=== PATIENT | female | born 1995 | race Caucasian/White ===

== ENCOUNTER 2017-02-13 22:13 | Emergency (ER) | payer OTHER ==
[2017-02-13 22:19] VITALS: BP 127/86; PULSE 76; TEMP 98.2; BMI 25.8
[2017-02-13] MEDS ORDERED: FLUCONAZOLE 50 MG TABLET PO ONE (23:58)
--- NOTE | 2017-02-14 00:03 | PDOC ---
History of Present Illness - General Chief Complaint: Vaginal Sxs Stated Complaint: VAGINAL ITCHING Time Seen by Provider: 02/13/17 23:39 History Source: Patient Exam Limitations: No Limitations - History of Present Illness Initial Comments: 02/13/17 23:58 22 yo F with no pmhx herer with c/o vaginal itching x 2 - 3 days. no abd pain. does have thick white dc. was started on amoxicillin few days ago. no other complaints. not . no concerns for std. no new sexual encounters. Past History - Past Medical History Allergies/Adverse Reactions: Allergies Allergy/AdvReac Type Severity Reaction Status Date / Time No Known Allergies Allergy Verified 02/13/17 22:19 Home Medications: Ambulatory Orders Fluconazole [Diflucan -] 150 mg PO ONCE #1 tablet 02/14/17 Other medical history: denies - Psycho/Social/Smoking Cessation Hx Anxiety: No Suicidal Ideation: No Smoking Status: No Smoking History: Never smoked Number of Cigarettes Smoked Daily: 0 Hx Alcohol Use: Yes (SOCIAL) Drug/Substance Use Hx: No Substance Use Type: Marijuana Review of Systems - Review of Systems Constitutional: No: Chills, Diaphoresis, Fever HEENTM: No: Blurred Vision Respiratory: No: Cough, Orthopnea Cardiac (ROS): No: Chest Pain ABD/GI: No: See HPI, Abdominal Distended, Nausea, Vomiting : Yes: Burning, Other (vaginal itching, vaginal white dc.). No: Dysuria, Discharge Musculoskeletal: No: Back Pain All Other Systems: Reviewed and Negative *Physical Exam - Vital Signs Last Vital Signs Temp Pulse Resp BP Pulse Ox 98.2 F 76 18 127/86 99 02/13/17 22:16 02/13/17 22:16 02/13/17 22:16 02/13/17 22:16 02/13/17 22:16 - Physical Exam General Appearance: Yes: Appropriately Dressed Neck: positive: Trachea midline Respiratory/Chest: positive: Lungs Clear, Normal Breath Sounds Cardiovascular: positive: Regular Rhythm, Regular Rate, S1, S2 Female Pelvic Exam: positive: normal external exam, cervical os closed, normal size ovaries, discharge (white adherant cottage cheese like dc) Gastrointestinal/Abdominal: positive: Normal Bowel Sounds, Flat, Soft. negative : Tender Musculoskeletal: positive: Normal Inspection. negative: CVA Tenderness Integumentary: positive: Normal Color, Dry, Warm Neurologic: positive: Fully Oriented, Alert, Normal Mood/Affect Medical Decision Making - Medical Decision Making 02/14/17 00:00 22 yo F with vaginal irritation, yeast like dc on exam. plan r/o , treat with diflucan and otc monistat. dc home. *DC/Admit/Observation/Transfer Diagnosis at time of Disposition: Vaginitis - Discharge Dispostion Disposition: HOME Condition at time of disposition: Improved Admit: No - Prescriptions Prescriptions: Fluconazole [Diflucan -] 150 mg PO ONCE #1 tablet - Patient Instructions Printed Discharge Instructions: Vaginal Yeast Infection Additional Instructions: take diflucan once in 2 days if still with persistant symptoms. you can use monistat 3 day suppositories nightly which you can buy over the counter. follow up with your medical assembler. call to schedule return for any problems or concerns.
[2017-02-14 00:04] LABS: URINE APPEARANCE CLEAR; URINE BILIRUBIN NEGATIVE (NEGATIVE); URINE BLOOD NEGATIVE (NEGATIVE); URINE COLOR LTYELLOW; URINE GLUCOSE (UA) NEGATIVE (NEGATIVE); URINE KETONE TRACE (NEGATIVE); URINE LEUK ESTERASE NEGATIVE (NEGATIVE); URINE NITRITE NEGATIVE (NEGATIVE); URINE PROTEIN NEGATIVE (NEGATIVE); URINE UROBILINOGEN NEGATIVE E.U./dl (0.2-1.0)
[2017-02-14] MEDS ORDERED: FLUCONAZOLE 100 MG TABLET (UD) ONE (00:13)
== END 2017-02-14 00:20 | disposition home or self-care (01) ==
LOC: JER 22:13
DX: B37.3 Candidiasis of vulva and vagina (principal)
CPT/HCPCS: 81003; 84703; 99281-25

== ENCOUNTER 2017-06-09 14:59 | Emergency (ER) | payer OTHER ==
[2017-06-09 15:03] VITALS: BMI 27.1
--- NOTE | 2017-06-09 16:25 | PDOC ---
History of Present Illness - General History Source: Patient - History of Present Illness Timing/Duration: reports: constant Abdominal Pain Onset Location: reports: suprapubic <Noris Gotti - Last Filed: 06/09/17 18:51> <Alexandria Alarcon - Last Filed: 06/09/17 20:21> - General Chief Complaint: Vaginal Bleeding Stated Complaint: BLEEDING (6 WKS ) Time Seen by Provider: 06/09/17 16:17 Past History - Past Medical History Other medical history: NONE - Reproductive History Is Patient Now?: Yes (#): 3 Para: 0 - Suicide/Smoking/Psychosocial Hx Smoking Status: No Smoking History: Never smoked Number of Cigarettes Smoked Daily: 0 Hx Alcohol Use: No Drug/Substance Use Hx: No Substance Use Type: Marijuana <Noris Gotti - Last Filed: 06/09/17 18:51> <Alexandria Alarcon - Last Filed: 06/09/17 20:21> - Past Medical History Allergies/Adverse Reactions: Allergies Allergy/AdvReac Type Severity Reaction Status Date / Time No Known Allergies Allergy Verified 06/09/17 15:03 Home Medications: Ambulatory Orders Ondansetron [Zofran *Odt*] 8 mg SL TID PRN 06/09/17 Review of Systems - Review of Systems Constitutional: No: Chills, Fever ABD/GI: No: Nausea, Vomiting : No: Dysuria, Flank Pain <Noris Gotti - Last Filed: 06/09/17 18:51> *Physical Exam - Vital Signs Last Vital Signs Temp Pulse Resp BP Pulse Ox 98.6 F 107 H 20 135/83 100 06/09/17 15:01 06/09/17 15:01 06/09/17 15:01 06/09/17 15:01 06/09/17 15:01 - Physical Exam General Appearance: Yes: Appropriately Dressed. No: Apparent Distress HEENT: positive: Normal Voice Neck: positive: Supple Respiratory/Chest: negative: Respiratory Distress Female Pelvic Exam: positive: normal external exam, cervical os closed, normal adnexa, vaginal bleeding, other (mod vag bleed, os closed). negative: CMT Gastrointestinal/Abdominal: positive: Soft. negative: Tender Musculoskeletal: negative: CVA Tenderness Integumentary: positive: Dry, Warm Neurologic: positive: Fully Oriented, Alert, Normal Mood/Affect <Noris Gotti - Last Filed: 06/09/17 18:51> - Vital Signs Last Vital Signs Temp Pulse Resp BP Pulse Ox 98.5 F 70 18 114/59 100 06/09/17 20:04 06/09/17 20:04 06/09/17 20:04 06/09/17 20:04 06/09/17 20:04 <Alexandria Alarcon - Last Filed: 06/09/17 20:21> ED Treatment Course - RADIOLOGY Radiology Studies Ordered: Category Date Time Status TRANSVAGINAL US PREG [US] Stat Ultrasound 06/09/17 16:22 Ordered <Noris Gotti - Last Filed: 06/09/17 18:51> - ADDITIONAL ORDERS Additional order review: Laboratory Results 06/09/17 06/09/17 06/09/17 16:39 16:39 16:39 Beta HCG, Quant 57862.9 Urine Color Colorless Urine Appearance Clear Urine pH 7.0 Urine Protein Negative Urine Glucose (UA) Negative Urine Ketones Negative Urine Blood 2+ H Urine Nitrite Negative Urine Bilirubin Negative Urine Urobilinogen Negative Urine RBC <1 Urine WBC <1 Blood Type O NEGATIVE Antibody Screen Negative - Medications Given in the ED: ED Medications Discontinued Medications Generic Name Dose Route Start Last Admin Trade Name Rosalind PRN Reason Stop Dose Admin Rho Immune Globulin 1,500 unit 06/09/17 18:29 06/09/17 20:03 Rhogam Plus IM 06/09/17 18:30 1,500 unit ONCE ONE Administration <Alexandria Alarcon - Last Filed: 06/09/17 20:21> Medical Decision Making - Medical Decision Making 06/09/17 16:23 22 yo F, (s/p 2 spon AB), ~ 6 weeks by dates, no US as of yet, p/w vaginal bleeding w/ cramps today. No dysuria, nausea, vomiting, fever or chills , scheduled for first care in the near future See exam 1st trimester bleed Mildly tachy but well cori, in NAD R/o ectopic vs spon AB vs vag bleed in nl preg -T&S -beta -UA -US 06/09/17 16:25 06/09/17 18:30 +IUP w/ FHR on US. Rhogam give for RH neg status. Pt stable for discharge w/ OB f/u next week 06/09/17 18:31 06/09/17 18:50 06/09/17 18:50 <Noris Gotti - Last Filed: 06/09/17 18:51> *DC/Admit/Observation/Transfer <Noris Gotti - Last Filed: 06/09/17 18:51> - Discharge Dispostion Admit: No <Alexandria Alarcon - Last Filed: 06/09/17 20:21> Diagnosis at time of Disposition: Threatened - Discharge Dispostion Disposition: HOME Condition at time of disposition: Good - Patient Instructions Printed Discharge Instructions: DI for Threatened Additional Instructions: The beta HCG was ~40,000K with an intrauterine with cardiac activity Please follow up with your OB next week You were given rhogam today as you are RH neg on your blood type. Rhogam is given to protect future pregnancies
[2017-06-09 16:47] LABS: URINE APPEARANCE CLEAR; URINE BILIRUBIN NEGATIVE (NEGATIVE); URINE BLOOD 2+ (NEGATIVE); URINE COLOR COLORLESS; URINE GLUCOSE (UA) NEGATIVE (NEGATIVE); URINE KETONE NEGATIVE (NEGATIVE); URINE NITRITE NEGATIVE (NEGATIVE); URINE PROTEIN NEGATIVE (NEGATIVE); URINE UROBILINOGEN NEGATIVE mg/dL (0.2-1.0)
[2017-06-09 16:49] LABS: URINE RBC <1 /hpf (0-3); URINE WBC <1 /hpf (3-5)
[2017-06-09] MEDS ORDERED: RHO(D) IMMUNE GLOBULIN 1,500 UNIT DISP.SYRIN IM ONE (18:29)
[2017-06-09 20:05] VITALS: BP 114/59; PULSE 70; TEMP 98.5
[2017-06-09 20:12] LABS: URINE LEUK ESTERASE Negative (NEGATIVE)
== END 2017-06-09 20:38 | disposition home or self-care (01) ==
LOC: JER 14:59
PROC: 3E0234Z Introduction of Serum, Toxoid and Vaccine into Muscle, Percutaneous Approach (ICD-10-PCS; principal; 2017-06-09)
DX: O20.0 Threatened abortion (principal); O36.0910 Maternal care for other rhesus isoimmunization, first trimester, not applicable or unspecified; Z3A.01 Less than 8 weeks gestation of pregnancy
CPT/HCPCS: 36415; 76801-TC; 81003; 81015; 84702; 86850; 86900; 86901; 86999; 99283-25; J1561

== ENCOUNTER 2017-06-16 05:13 | Day surgery (SDC) | payer OTHER ==
[2017-06-15 12:03] VITALS: BMI 26.4
--- NOTE | 2017-06-16 14:20 | HP ---
Admitting History and Physical - Admission Chief Complaint: Vaginal spotting History of Present Illness: 22 yo @ 7 weeks gestation, diagnosed with missed . She's pre op for suction D&C. History Source: Patient Limitations to Obtaining History: No Limitations - Past Medical History ...LMP: 04/23/17 ...: Yes ...: 2 ...Para: 0 - Past Surgical History Past Surgical History: Yes: None - Smoking History Smoking history: Never smoked Aproximately how many cigarettes per day: 0 - Alcohol/Substance Use Hx Alcohol Use: Yes ("NOT IN A WHILE") History of Substance Use: reports: None - Social History Usual Living Arrangement: Yes: Alone History of Recent Travel: No Home Medications - Allergies Allergies/Adverse Reactions: Allergies Allergy/AdvReac Type Severity Reaction Status Date / Time No Known Allergies Allergy Verified 06/16/17 14:06 - Home Medications Home Medications: Ambulatory Orders Vit Calc,Iron,Folic [ Vitamins] 1 each PO DAILY 06/15/17 Family Disease History - Family Disease History Family History: Unremarkable Review of Systems - Review of Systems Constitutional: reports: No Symptoms Eyes: reports: No Symptoms HENT: reports: No Symptoms Neck: reports: No Symptoms Cardiovascular: reports: No Symptoms Respiratory: reports: No Symptoms Gastrointestinal: reports: No Symptoms Genitourinary: reports: Vaginal Bleeding Breasts: reports: No Symptoms Reported Musculoskeletal: reports: No Symptoms Integumentary: reports: No Symptoms Neurological: reports: No Symptoms Endocrine: reports: No Symptoms Hematology/Lymphatic: reports: No Symptoms Psychiatric: reports: No Symptoms Pain Intensity: 3 Physical Examination Vital Signs: Vital Signs Temperature 98.6 F 06/16/17 14:06 Pulse Rate 79 06/16/17 14:06 Respiratory Rate 16 06/16/17 14:06 Blood Pressure 112/53 06/16/17 14:06 O2 Sat by Pulse Oximetry (%) 100 06/16/17 14:06 Constitutional: Yes: Well Nourished Eyes: Yes: Conjunctiva Clear HENT: Yes: Atraumatic Neck: Yes: Supple Cardiovascular: Yes: Regular Rate and Rhythm Respiratory: Yes: Regular Gastrointestinal: Yes: Normal Bowel Sounds ...Rectal Exam: Yes: WNL Neurological: Yes: Alert, Oriented ...Motor Strength: WNL Psychiatric: Yes: Alert, Oriented Problem List - Problems (1) Missed Code(s): O02.1 - MISSED Assessment/Plan Missed Pre op for suction D&C Consent signed Anesthesia to see patient
[2017-06-16] MEDS ORDERED: MIDAZOLAM HCL 2 MG/2 ML SINGLE DOSE VIAL ONE (14:33)
[2017-06-16] MEDS ORDERED: PROPOFOL 20 ML ONE ×3 (14:34)
[2017-06-16] MEDS ORDERED: LIDOCAINE HCL/PF 2% SDV 5ML VIAL ONE (14:38)
[2017-06-16] MEDS ORDERED: DEXAMETHASONE SOD PHOSPHATE 4 MG/1 ML VIAL ONE (14:38)
[2017-06-16] MEDS ORDERED: ONDANSETRON 4 MG/2 ML VIAL IVPUSH PRN (15:27)
[2017-06-16] MEDS ORDERED: oxyCODONE HCL 5 MG TABLET PO PRN ×2 (15:27)
[2017-06-16] MEDS ORDERED: LACTATED RINGERS SOLUTION 1,000 ML IV SCH (15:30)
--- NOTE | 2017-06-16 15:54 | OP ---
Operative Note - Note: Operative Date: 06/16/17 Pre-Operative Diagnosis: Missed Operation: Suction D&C Findings: Product of conception Post-Operative Diagnosis: Same as Pre-op Surgeon: Mary Velazquez Anesthesia: General Specimens Removed: Product of conception Estimated Blood Loss (mls): 10
[2017-06-16] MEDS ORDERED: ACETAMINOPHEN 1000 MG/100 ML VIAL (NON FORMULARY) IVPB ONE (15:55)
[2017-06-16 16:30] VITALS: TEMP 98.1
[2017-06-16 17:39] VITALS: BP 107/66; PULSE 82
== END 2017-06-16 17:40 | disposition home or self-care (01) ==
LOC: JASU-SURG 05:13
PROVIDERS: ATTEND Obstetrics & Gynecology
PROC: 10D17ZZ Extraction of Products of Conception, Retained, Via Natural or Artificial Opening (ICD-10-PCS; principal; 2017-06-16 15:00)
DX: O02.1 Missed abortion (principal)

== ENCOUNTER 2018-09-18 15:05 | Emergency (ER) | payer OTHER ==
[2018-09-18 15:09] VITALS: BP 109/52; PULSE 83; TEMP 99; BMI 29.0
--- NOTE | 2018-09-18 16:02 | PDOC ---
History of Present Illness - General Chief Complaint: Pain Stated Complaint: 6 WK PREG / CRAMPS Time Seen by Provider: 09/18/18 15:44 History Source: Patient Exam Limitations: No Limitations - History of Present Illness Initial Comments: 09/18/18 15:57 23 yo [id number] w/ no sig PMHx comes in c/o lower abdominal cramping since yesterday. NO vaginal bleeding. She has seen her OB this week, had a documented IUP but was told that her HCG and progesterone levels were low, and the fetus' HR was low also. She has had 2 miscarriages in the past and is concerned that this is another one. No other complaints today, no fever/chills, no NVD, no burning/pain on urination, no frequency/urgency, no known sick contacts, no recent travel. LMP 08/04/18 09/18/18 17:15 Past History - Past Medical History Allergies/Adverse Reactions: Allergies Allergy/AdvReac Type Severity Reaction Status Date / Time No Known Allergies Allergy Verified 09/18/18 15:09 Home Medications: Ambulatory Orders Vit Calc,Iron,Folic [ Vitamins] 1 each PO DAILY 06/15/17 Anemia: No Asthma: No Cancer: No Cardiac Disorders: No CVA: No COPD: No CHF: No Dementia: No Diabetes: No GI Disorders: No Disorders: No HTN: No Hypercholesterolemia: No Liver Disease: No Seizures: No Thyroid Disease: No Other medical history: miscarriages x 2 - Surgical History Abdominal Surgery: No Appendectomy: No Cardiac Surgery: No Cholecystectomy: No Lung Surgery: No Neurologic Surgery: No Orthopedic Surgery: No - Reproductive History (#): 3 Para: 0 Cervical CA: No Dysfunctional Uterine Bleeding: No Ectopic : No Endometrial CA: No Polycystic Ovaries: No Therapeutic (s) & number: No Tubal Ligation: No Spontaneous : 2 - Suicide/Smoking/Psychosocial Hx Smoking Status: No Smoking History: Never smoked Number of Cigarettes Smoked Daily: 0 Hx Alcohol Use: No Drug/Substance Use Hx: No Substance Use Type: Alcohol Hx Substance Use Treatment: No (DENIES) Review of Systems - Review of Systems Able to Perform ROS?: Yes Constitutional: No: Chills, Fever, Malaise, Night Sweats HEENTM: No: Eye Pain, Recent change in vision, Throat Pain Respiratory: No: Cough, Shortness of Breath Cardiac (ROS): No: Chest Pain, Palpitations, Chest Tightness ABD/GI: Yes: Abdominal cramping. No: Diarrhea, Nausea, Vomiting : No: Dysuria, Hematuria Musculoskeletal: No: Back Pain Integumentary: No: Rash Neurological: No: Headache, Numbness, Dizziness Psychiatric: No: Change in Appetite Endocrine: No: Unexplained Weight Loss *Physical Exam - Vital Signs Last Vital Signs Temp Pulse Resp BP Pulse Ox 99.0 F 83 18 109/52 L 99 09/18/18 15:06 09/18/18 15:06 09/18/18 15:06 09/18/18 15:06 09/18/18 15:06 - Physical Exam General Appearance: Yes: Nourished. No: Apparent Distress HEENT: positive: [place], Normal ENT Inspection, Normal Voice. negative: Pale Conjunctivae, Scleral Icterus (R), Scleral Icterus (L) Neck: positive: Supple. negative: Decreased range of motion, Tender midline Respiratory/Chest: positive: Lungs Clear, Normal Breath Sounds. negative: Respiratory Distress, Accessory Muscle Use Cardiovascular: positive: Regular Rhythm, Regular Rate Gastrointestinal/Abdominal: positive: Normal Bowel Sounds, Soft, Tenderness ( diffuse lower abdominal tenderness, non focal). negative: Tender Musculoskeletal: positive: Normal Inspection. negative: CVA Tenderness, Decreased Range of Motion Extremity: positive: Normal Capillary Refill, Normal Inspection, Normal Range of Motion. negative: Tender, Pedal Edema Integumentary: positive: Normal Color, Dry. negative: Jaundice, Rash Neurologic: positive: Fully Oriented, Alert, Normal Mood/Affect Moderate Sedation - Procedure Monitoring Vital Signs: Procedure Monitoring Vital Signs Temperature 99.0 F 09/18/18 15:06 Pulse Rate 83 09/18/18 15:06 Respiratory Rate 18 09/18/18 15:06 Blood Pressure 109/52 L 09/18/18 15:06 O2 Sat by Pulse Oximetry (%) 99 09/18/18 15:06 ED Treatment Course - LABORATORY CBC & Chemistry Diagram: 09/18/18 16:40 09/18/18 16:40 - RADIOLOGY Radiology Studies Ordered: Category Date Time Status TRANSVAGINAL US PREG [US] Stat Ultrasound 09/18/18 15:51 Ordered Medical Decision Making - Medical Decision Making 09/18/18 16:01 23 yo 6wks w/ abdominal cramping in early . NO vaginal bleeding. Will do labs, sono and reassess 09/18/18 20:01 CHange of shift, care of patient signed over to YARITZA Chanel who will follow up labs and reassess patient *DC/Admit/Observation/Transfer Diagnosis at time of Disposition: Abdominal pain affecting - Discharge Dispostion Disposition: HOME Condition at time of disposition: Stable - Referrals Referrals: Yimi Wiggins [Primary Care Provider] - - Patient Instructions Printed Discharge Instructions: DI for Abdominal Pain -- Early Additional Instructions: Your Discharge Instructions: You must call primary care physician within 24 hours to arrange follow-up. Return to the Emergency Department with any new, persistent or worsening symptoms, for fever, chills, SOB, dizziness or any other concerning changes that may occur. Return to the ER if bleeding more than 1 pad an hour or worsening pain. - Post Discharge Activity
[2018-09-18 16:44] LABS: BASO % 0.3 % (0-2.0); EOS % 1.2 % (0-4.5); HEMATOCRIT 38.8 % (32.4-45.2); HEMOGLOBIN 13.4 GM/dL (10.7-15.3); LYMPH % 27.2 % (8-40); MCH 29.1 pg (25.7-33.7); MCHC 34.5 g/dl (32.0-36.0); MEAN CELL VOLUME 84.3 fl (80-96); MEAN PLT VOLUME 8.2 fl (7.5-11.1); MONO % 7.9 % (3.8-10.2); NEUT % 63.4 % (42.8-82.8); PLATELET COUNT 251 K/MM3 (134-434); RBC 4.61 M/mm3 (3.60-5.2); RDW 13.4 % (11.6-15.6); WHITE BLOOD COUNT 6.9 K/mm3 (4.0-10.0)
[2018-09-18 17:17] LABS: URINE APPEARANCE CLEAR; URINE BILIRUBIN NEGATIVE (<2.0 mg/dL); URINE COLOR YELLOW; URINE GLUCOSE (UA) NEGATIVE (NEGATIVE); URINE KETONE NEGATIVE (NEGATIVE); URINE LEUK ESTERASE NEGATIVE (NEGATIVE); URINE NITRITE NEGATIVE (NEGATIVE); URINE PROTEIN NEGATIVE (NEGATIVE); URINE UROBILINOGEN NEGATIVE mg/dL (0.2-1.0)
--- NOTE | 2018-09-18 19:47 | PDOC ---
*Physical Exam - Vital Signs Last Vital Signs Temp Pulse Resp BP Pulse Ox 99.0 F 83 18 109/52 L 99 09/18/18 15:06 09/18/18 15:06 09/18/18 15:06 09/18/18 15:06 09/18/18 15:06 ED Treatment Course - LABORATORY CBC & Chemistry Diagram: 09/18/18 16:40 09/18/18 16:40 - ADDITIONAL ORDERS Additional order review: Laboratory Results 09/18/18 09/18/18 09/18/18 16:40 16:40 16:40 Sodium Cancelled Potassium Cancelled Chloride Cancelled Carbon Dioxide Cancelled Anion Gap Cancelled BUN Cancelled Creatinine Cancelled Creat Clearance w eGFR Cancelled Random Glucose Cancelled Calcium Cancelled Total Bilirubin Cancelled AST Cancelled ALT Cancelled Alkaline Phosphatase Cancelled Total Protein Cancelled Albumin Cancelled Beta HCG, Quant Cancelled Urine Color Yellow Urine Appearance Clear Urine pH 7.0 Ur Specific [place] 1.020 Urine Protein Negative Urine Glucose (UA) Negative Urine Ketones Negative Urine Blood Negative Urine Nitrite Negative Urine Bilirubin Negative Urine Urobilinogen Negative Ur Leukocyte Esterase Negative Blood Type Cancelled Antibody Screen Cancelled 09/18/18 16:40 RBC 4.61 MCV 84.3 MCHC 34.5 RDW 13.4 MPV 8.2 Neutrophils % 63.4 Lymphocytes % 27.2 Monocytes % 7.9 Eosinophils % 1.2 D Basophils % 0.3 Medical Decision Making - Medical Decision Making 09/18/18 19:46 Endorsed to me to follow ultrasound and beta hCG Patient Full Name: ADILENE BOWMAN Patient Accession No: [id number] Patient : 1995 Reason for Exam: abdominal cramping in Referring Physician: LIZ DOMINGUEZ Patient Name: COLBY HEAD THIS IS A PRELIMINARY REPORT FROM [facility] DATE OF SERVICE: 2018-09-18 17:42:08 IMAGES: 61 EXAM: TRANSVAGINAL US PREG HISTORY: with cramping COMPARISON: None. FINDINGS: There is an intrauterine gestational sac containing a pole and yolk sac heart rate is low at 92 bpm Approximate age of 6 weeks, 0 days by mean crown-rump length of 0.3 cm Amniotic fluid volume is subjectively adequate No evidence of subchorionic hemorrhage Incidental small nabothian cysts Normal ovaries without evidence of torsion No adnexal masses No free fluid THIS DOCUMENT HAS BEEN ELECTRONICALLY SIGNED Jordan Tapia MD 09/18/2018 18:41 EST M.D. Please call Imaging Multiple Drum Sander Helper [phone] ([phone]) with questions. INTERPRETING RADIOLOGIST: Jordan Tapia MD Electronically Signed: Sep 18, 2018 06:42PM EST HCG [id number] Patient has an appointment in 2 weeks with [facility]. I discussed the physical exam findings, ancillary test results and final diagnoses with the patient. I answered all of the patient's questions. The patient was satisfied with the care received and felt comfortable with the discharge plan and treatment plan. The Patient agrees to follow up with the primary care physician within 24-72 hours. *DC/Admit/Observation/Transfer Diagnosis at time of Disposition: Abdominal pain affecting - Discharge Dispostion Disposition: HOME Condition at time of disposition: Stable - Referrals Referrals: Yimi Wiggins [Primary Care Provider] - - Patient Instructions Printed Discharge Instructions: DI for Abdominal Pain -- Early Additional Instructions: Your Discharge Instructions: You must call primary care physician within 24 hours to arrange follow-up. Return to the Emergency Department with any new, persistent or worsening symptoms, for fever, chills, SOB, dizziness or any other concerning changes that may occur. Return to the ER if bleeding more than 1 pad an hour or worsening pain. - Post Discharge Activity
[2018-09-19 09:06] LABS: ALK PHOS 58 U/L (45-117); ANION GAP 8 MMOL/L (8-16); BILIRUBIN,TOTAL 0.8 mg/dL (0.2-1); BLOOD UREA NITROGEN 10 mg/dL (7-18); CALCIUM 9.2 mg/dL (8.5-10.1); CHLORIDE 107 mmol/L (98-107); CO2 24 mmol/L (21-32); CREATININE 0.6 mg/dL (0.55-1.3); GLUCOSE,RANDOM 91 mg/dL (74-106); POTASSIUM 4.6 mmol/L (3.5-5.1); SGOT/AST 19 U/L (15-37); SGPT/ALT 19 U/L (13-61); SODIUM 139 mmol/L (136-145); TOT PROT 6.9 g/dl (6.4-8.2)
== END 2018-09-18 20:10 | disposition home or self-care (01) ==
LOC: JER 15:05
DX: O26.891 Other specified pregnancy related conditions, first trimester (principal); R10.30 Lower abdominal pain, unspecified; Z3A.01 Less than 8 weeks gestation of pregnancy
CPT/HCPCS: 36415; 76817-TC; 80053; 81003; 84702; 85025; 86850; 86900; 86901; 87086; 87186; 99282-25

== ENCOUNTER 2018-09-21 12:48 | Emergency (ER) | payer OTHER ==
[2018-09-21 13:33] VITALS: BP 118/54; PULSE 83; TEMP 98.3; BMI 29.0
--- NOTE | 2018-09-21 15:27 | PDOC ---
History of Present Illness - General Chief Complaint: Pain Stated Complaint: ABD PAIN Time Seen by Provider: 09/21/18 15:03 Past History - Past Medical History Allergies/Adverse Reactions: Allergies Allergy/AdvReac Type Severity Reaction Status Date / Time No Known Allergies Allergy Verified 09/18/18 15:09 Home Medications: Ambulatory Orders Vit Calc,Iron,Folic [ Vitamins] 1 each PO DAILY 06/15/17 Anemia: No Asthma: No Cancer: No Cardiac Disorders: No CVA: No COPD: No CHF: No Dementia: No Diabetes: No GI Disorders: No Disorders: No HTN: No Hypercholesterolemia: No Liver Disease: No Seizures: No Thyroid Disease: No - Surgical History Abdominal Surgery: No Appendectomy: No Cardiac Surgery: No Cholecystectomy: No Lung Surgery: No Neurologic Surgery: No Orthopedic Surgery: No - Reproductive History (#): 3 Para: 0 Cervical CA: No Dysfunctional Uterine Bleeding: No Ectopic : No Endometrial CA: No Polycystic Ovaries: No Therapeutic (s) & number: No Tubal Ligation: No Spontaneous : 2 - Immunization History Immunization Up to Date: Yes - Suicide/Smoking/Psychosocial Hx Smoking Status: No Smoking History: Never smoked Number of Cigarettes Smoked Daily: 0 Hx Alcohol Use: No Drug/Substance Use Hx: No Substance Use Type: Alcohol Hx Substance Use Treatment: No (DENIES) *Physical Exam - Vital Signs Last Vital Signs Temp Pulse Resp BP Pulse Ox 98.3 F 83 18 118/54 L 100 09/21/18 13:30 09/21/18 13:30 09/21/18 13:30 09/21/18 13:30 09/21/18 13:30 Moderate Sedation - Procedure Monitoring Vital Signs: Procedure Monitoring Vital Signs Temperature 98.3 F 09/21/18 13:30 Pulse Rate 83 09/21/18 13:30 Respiratory Rate 18 09/21/18 13:30 Blood Pressure 118/54 L 09/21/18 13:30 O2 Sat by Pulse Oximetry (%) 100 09/21/18 13:30 ED Treatment Course - LABORATORY CBC & Chemistry Diagram: 09/21/18 16:24 *DC/Admit/Observation/Transfer Diagnosis at time of Disposition: Abdominal pain Qualifiers: Abdominal location: unspecified location Qualified Code(s): R10.9 - Unspecified abdominal pain - Discharge Dispostion Disposition: HOME Condition at time of disposition: Stable Decision to Admit order: No - Referrals Referrals: Yimi Wiggins [Primary Care Provider] - - Patient Instructions Printed Discharge Instructions: DI for Threatened Additional Instructions: You had a repeat ultrasound today I will call with your results Drink plenty of fluids Follow up with your [employer] COM[employer] SCIENCE TE[employer]ER Return for any new or worsening symptoms - Post Discharge Activity
[2018-09-21 16:40] LABS: BASO % 0.3 % (0-2.0); HEMATOCRIT 37.6 % (32.4-45.2); HEMOGLOBIN 12.7 GM/dL (10.7-15.3); LYMPH % 25.2 % (8-40); MCHC 33.9 g/dl (32.0-36.0); MEAN CELL VOLUME 85.5 fl (80-96); MONO % 7.9 % (3.8-10.2); NEUT % 65.6 % (42.8-82.8); PLATELET COUNT 241 K/MM3 (134-434); RBC 4.39 M/mm3 (3.60-5.2); RDW 13.4 % (11.6-15.6); WHITE BLOOD COUNT 7.9 K/mm3 (4.0-10.0)
== END 2018-09-21 17:18 | disposition home or self-care (01) ==
LOC: JER 12:48
DX: O26.891 Other specified pregnancy related conditions, first trimester (principal); R10.9 Unspecified abdominal pain; Z3A.01 Less than 8 weeks gestation of pregnancy
CPT/HCPCS: 36415; 76817-TC; 84702; 85025; 86850; 86900; 86901; 99281-25

== ENCOUNTER 2019-03-10 16:45 | Emergency (ER) | payer OTHER ==
[2019-03-10 16:57] VITALS: TEMP 98.6; BMI 29.8
--- NOTE | 2019-03-10 16:58 | PDOC ---
Rapid Medical Evaluation Time Seen by Provider: 03/10/19 16:54 Medical Evaluation: Allergies Allergy/AdvReac Type Severity Reaction Status Date / Time No Known Allergies Allergy Verified 09/18/18 15:09 03/10/19 16:54 I have performed a brief in-person evaluation of this patient. The patient presents with a chief complaint of: dark colored blood with abdominal pain. Pt is 6 weeks . She has not had a sono yet in this . LMP January 26 Pertinent physical exam findings: Pt in no apparent distress I have ordered the following: CBC, CMP, HCG, UA, UCG, transvaginal sono, type and screen The patient will proceed to the ED for further evaluation. Discharge Disposition - Diagnosis Vaginal bleeding during - Referrals - Patient Instructions - Post Discharge Activity
--- NOTE | 2019-03-10 18:22 | PDOC ---
History of Present Illness - General Chief Complaint: Vaginal Bleeding Stated Complaint: ABD PAIN/VAGINAL BLEEDING/ 6WKS PREG. Time Seen by Provider: 03/10/19 16:54 History Source: Patient Exam Limitations: No Limitations Past History - Past Medical History Allergies/Adverse Reactions: Allergies Allergy/AdvReac Type Severity Reaction Status Date / Time No Known Allergies Allergy Verified 03/10/19 16:57 Home Medications: Ambulatory Orders Vit Calc,Iron,Folic [ Vitamins] 1 each PO DAILY 06/15/17 Enoxaparin [Lovenox -] 40 mg SQ DAILY 03/10/19 Progesterone, Micronized [Progesterone] 200 mg PO DAILY 03/10/19 Anemia: No Asthma: No Cancer: No Cardiac Disorders: No CVA: No COPD: No CHF: No Dementia: No Diabetes: No GI Disorders: No Disorders: No HTN: No Hypercholesterolemia: No Liver Disease: No Seizures: No Thyroid Disease: No Other medical history: BLOOD CLOTTING PROBLEM PROTIEN S DEF, MTHFR - Surgical History Abdominal Surgery: No Appendectomy: No Cardiac Surgery: No Cholecystectomy: No Lung Surgery: No Neurologic Surgery: No Orthopedic Surgery: No - Reproductive History (#): 3 Para: 0 Cervical CA: No Dysfunctional Uterine Bleeding: No Ectopic : No Endometrial CA: No Polycystic Ovaries: No Therapeutic (s) & number: No Tubal Ligation: No Spontaneous : 2 - Immunization History Immunization Up to Date: Yes - Suicide/Smoking/Psychosocial Hx Smoking Status: No Smoking History: Never smoked Number of Cigarettes Smoked Daily: 0 Hx Alcohol Use: No Drug/Substance Use Hx: No Substance Use Type: Alcohol Hx Substance Use Treatment: No (DENIES) *Physical Exam - Vital Signs Last Vital Signs Temp Pulse Resp BP Pulse Ox 98.6 F 82 16 106/55 L 100 03/10/19 16:54 03/10/19 16:54 03/10/19 16:54 03/10/19 16:54 03/10/19 16:54 - Physical Exam General Appearance: No: Apparent Distress Respiratory/Chest: positive: Lungs Clear, Normal Breath Sounds. negative: Respiratory Distress Cardiovascular: positive: Regular Rhythm, Regular Rate, S1, S2. negative: Murmur Female Pelvic Exam: positive: other (small amount of blackish discharge in vault , cervical os closed) Gastrointestinal/Abdominal: positive: Normal Bowel Sounds, Soft. negative: Tender, Distended, Guarding, Rebound Musculoskeletal: negative: CVA Tenderness ED Treatment Course - LABORATORY CBC & Chemistry Diagram: 03/10/19 18:49 03/10/19 18:49 Medical Decision Making - Medical Decision Making 24 y/o F hx of protein S deficiency (on Lovenox), (prior 3 miscarriages) , LNMP 01/26 presents with mild lower abdominal cramps and noting dark brown/ black vaginal discharge from yesterday. Is following up with PLANT SCIENTIST at [facility] but has not yet had an ultrasound done. Denies fever, sob, cp, n/v, urinary complaints R/o ectopic; possible threatened Plan: Labs, T&S, TVUS 03/10/19 18:20 Rh negative - given Rhogam TVUS - IUP noted, also with small subchorionic implantation bleed Patient given copy of US results; advised to f/u with her PLANT SCIENTIST at [facility] Stable for dc 03/10/19 21:14 *DC/Admit/Observation/Transfer Diagnosis at time of Disposition: Threatened - Discharge Dispostion Disposition: HOME Condition at time of disposition: Stable Decision to Admit order: No - Referrals - Patient Instructions Printed Discharge Instructions: DI for Threatened Additional Instructions: Thank you for choosing [facility]. It was a pleasure taking care of you. Please avoid intercourse or heavy work until symptoms resolve Follow-up with your PLANT SCIENTIST in 2-3 days regarding results of your ultrasound Return to the Emergency Department if your symptoms worsen or persist or have very heavy vaginal bleeding other concerning symptoms. - Post Discharge Activity
[2019-03-10 18:58] LABS: BASO % 0.4 % (0-2.0); EOS % 1.2 % (0-4.5); HEMOGLOBIN 12.4 GM/dL (10.7-15.3); LYMPH % 27.2 % (8-40); MCH 27.8 pg (25.7-33.7); MCHC 32.7 g/dl (32.0-36.0); MEAN CELL VOLUME 85.1 fl (80-96); MEAN PLT VOLUME 7.9 fl (7.5-11.1); MONO % 9.1 % (3.8-10.2); NEUT % 62.1 % (42.8-82.8); PLATELET COUNT 265 K/MM3 (134-434); RBC 4.46 M/mm3 (3.60-5.2); RDW 13.4 % (11.6-15.6); WHITE BLOOD COUNT 7.5 K/mm3 (4.0-10.0)
[2019-03-10 19:21] LABS: PH,URINE 7.5 (5.0-8.0); URINE APPEARANCE CLEAR; URINE BILIRUBIN NEGATIVE (NEGATIVE); URINE COLOR YELLOW; URINE GLUCOSE (UA) NEGATIVE (NEGATIVE); URINE KETONE NEGATIVE (NEGATIVE); URINE LEUK ESTERASE NEGATIVE (NEGATIVE); URINE NITRITE NEGATIVE (NEGATIVE); URINE PROTEIN NEGATIVE (NEGATIVE)
[2019-03-10 19:23] LABS: BILIRUBIN,TOTAL 0.6 mg/dL (0.2-1); BLOOD UREA NITROGEN 11.2 mg/dL (7-18); CALCIUM 9.5 mg/dL (8.5-10.1); CREATININE 0.8 mg/dL (0.55-1.3); POTASSIUM 4.6 mmol/L (3.5-5.1); TOT PROT 7.2 g/dl (6.4-8.2)
[2019-03-10] MEDS ORDERED: RHO(D) IMMUNE GLOBULIN 1,500 UNIT DISP.SYRIN IM ONE (20:35)
[2019-03-10 22:02] VITALS: BP 111/60; PULSE 76
== END 2019-03-10 21:43 | disposition home or self-care (01) ==
LOC: JER 16:45
PROC: 3E0234Z Introduction of Serum, Toxoid and Vaccine into Muscle, Percutaneous Approach (ICD-10-PCS; principal; 2019-03-10)
DX: O26.891 Other specified pregnancy related conditions, first trimester (principal); O20.0 Threatened abortion; Z3A.01 Less than 8 weeks gestation of pregnancy
CPT/HCPCS: 36415; 76817-TC; 80053; 81003; 84702; 84703; 85025; 86850; 86900; 86901; 86999; 87086; 96372; 99284-25; J1561

== ENCOUNTER 2019-03-17 15:21 | Emergency (ER) | payer OTHER ==
[2019-03-17 15:26] VITALS: TEMP 98.4; BMI 29.0
--- NOTE | 2019-03-17 15:28 | PDOC ---
Rapid Medical Evaluation Medical Evaluation: Allergies Allergy/AdvReac Type Severity Reaction Status Date / Time No Known Allergies Allergy Verified 03/17/19 15:26 Vital Signs Temp Pulse Resp BP Pulse Ox 98.4 F 79 16 116/52 L 99 03/17/19 15:24 03/17/19 15:24 03/17/19 15:24 03/17/19 15:24 03/17/19 15:24 I have performed a brief in-person evaluation of this patient. The patient presents with a chief complaint of: Vaginal bleeding persisting x 1 week; was seen recently for same; was referred by her FACTORY PROCESS WORKERS here for repeat pelvic US in case this is possible miscarriage; states is just spotting now Pertinent physical exam findings: Pelvic deferred I have ordered the following: Pelvic US, bhcg The patient will proceed to the ED for further evaluation. 03/17/19 15:27
--- NOTE | 2019-03-17 17:51 | PDOC ---
History of Present Illness - General Chief Complaint: Vaginal Bleeding Stated Complaint: 7WKS/ BLEEDING Time Seen by Provider: 03/17/19 15:26 History Source: Patient, Old Records Exam Limitations: No Limitations - History of Present Illness Travel History: No Initial Comments: 03/17/19 17:50 HISTORY OF PRESENT ILLNESS: 24-year-old woman is 5 para 0 with a last menstrual period of 6 presents emergency department for evaluation of vaginal bleeding lasting for one week. Patient was seen and evaluated here 7 days ago was found to have a beta hCG of 20,500 and ultrasound showed a single viable intrauterine gestation at approximately 6 weeks 0 days. Small subchorionic implantation bleed was present. heart rate 121 bpm. Patient was evaluated Wednesday by her web site project manager was noted that the heart rate had decreased since the ultrasound. Patient was aware that time that spontaneous was likely. Patient has increased bleeding today she is here for evaluation of miscarriage. Patient reports her TECHNICAL AIDE has walking appointments tomorrow and can be evaluated at that time. No recent travel or sick contacts. PAST MEDICAL HISTORY: Denies past medical history SURGICAL HISTORY: Denies ALLERGIES: No known drug allergies REVIEW OF SYSTEMS General/Constitutional: Denies fever or chills. Denies weakness, weight change. HEENT: Denies change in vision. Denies ear pain or discharge. Denies sore throat. Cardiovascular: Denies chest pain or shortness of breath. Respiratory: Denies cough, wheezing, or hemoptysis. Gastrointestinal: Denies nausea, vomiting, diarrhea or constipation. Denies rectal bleeding. Genitourinary: see HPI Musculoskeletal: Denies joint or muscle swelling or pain. Denies neck or back pain. Skin and breasts: Denies rash or easy bruising. Neurologic: Denies headache, vertigo, loss of consciousness, or loss of sensation. Psychiatric: Denies depression or anxiety. Endocrine: Denies increased thirst. Denies abnormal weight change. Hematologic/Lymphatic: Denies anemia, easy bleeding, or history of blood clots. Allergic/Immunologic: Denies hives or skin allergy. Denies latex allergy. PHYSICAL EXAM General Appearance: Well-appearing, appropriately dressed. No apparent distress , no intoxication. Respiratory/Chest: Lungs CTAB. No shortness of breath, chest tenderness, respiratory distress, accessory muscle use. No crackles, rales, rhonchi, stridor , wheezing, dullness Cardiovascular: RRR. S1, S2. No JVD, murmur, bradycardia, tachycardia. Vascular Pulses: Dorsalis-Pedis (R): 2+, Dorsalis-Pedis (L): 2+ Gastrointestinal/Abdominal: Normal bowel sounds. Abdomen soft, non-distended. No tenderness or rebound tenderness. No organomegaly, pulsatile mass, guarding, hernia, hepatomegaly, splenomegaly. Past History - Past Medical History Allergies/Adverse Reactions: Allergies Allergy/AdvReac Type Severity Reaction Status Date / Time No Known Allergies Allergy Verified 03/17/19 15:26 Home Medications: Ambulatory Orders Vit Calc,Iron,Folic [ Vitamins] 1 each PO DAILY 06/15/17 Enoxaparin [Lovenox -] 40 mg SQ DAILY 03/10/19 Progesterone, Micronized [Progesterone] 200 mg PO DAILY 03/10/19 Anemia: No Asthma: No Cancer: No Cardiac Disorders: No CVA: No COPD: No CHF: No Dementia: No Diabetes: No GI Disorders: No Disorders: No HTN: No Hypercholesterolemia: No Liver Disease: No Seizures: No Thyroid Disease: No Other medical history: BLOOD CLOTTING FACTOR - Surgical History Abdominal Surgery: No Appendectomy: No Cardiac Surgery: No Cholecystectomy: No Lung Surgery: No Neurologic Surgery: No Orthopedic Surgery: No - Reproductive History (#): 3 Para: 0 Cervical CA: No Dysfunctional Uterine Bleeding: No Ectopic : No Endometrial CA: No Polycystic Ovaries: No Therapeutic (s) & number: No Tubal Ligation: No Spontaneous : 2 - Immunization History Immunization Up to Date: Yes - Suicide/Smoking/Psychosocial Hx Smoking Status: No Smoking History: Never smoked Number of Cigarettes Smoked Daily: 0 Hx Alcohol Use: No Drug/Substance Use Hx: No Substance Use Type: Alcohol Hx Substance Use Treatment: No (DENIES) *Physical Exam - Vital Signs Last Vital Signs Temp Pulse Resp BP Pulse Ox 98.4 F 79 16 116/52 L 99 03/17/19 15:24 03/17/19 15:24 03/17/19 15:24 03/17/19 15:24 03/17/19 15:24 Medical Decision Making - Medical Decision Making 03/17/19 17:51 A/P: 24-year-old woman with vaginal bleeding in early Ultrasound showed viable intrauterine gestation one week ago with a beta hCG of 20,500 Repeat beta Repeat ultrasound Reassess 03/17/19 18:44 Ultrasound as read by Dr. Crow: Single viable intrauterine gestation at approximately 6 weeks 2 days. A small subchorionic in plantation bleed is noted is also visualized on a prior ultrasound study of 03/10/19. Embryonic heart rate 126 bpm. Beta hCG-52,949.7. I will discharge patient home to follow-up with her web site project manager was walking appointments tomorrow. Patient is verbalized understanding of discharge instructions. Was explained to the patient she continue her vitamins and take only Tylenol for pain. I discussed the physical exam findings, ancillary test results and final diagnoses with the patient. I answered all of the patient's questions. The patient was satisfied with the care received and felt comfortable with the discharge plan and treatment plan. The patient will call their primary care physician within 24 hours to arrange follow-up and will return to the Emergency Department with any new, persistent or worsening symptoms. *DC/Admit/Observation/Transfer Diagnosis at time of Disposition: Vaginal bleeding affecting early - Discharge Dispostion Disposition: HOME Condition at time of disposition: Fair - Referrals Referrals: Trista Harvey [Primary Care Provider] - - Patient Instructions Additional Instructions: Take your vitamins. Keep well-hydrated. Avoid tobacco and alcohol as well as illegal drugs. No sexual intercourse until evaluated by your web site project manager. Make an appointment with your BRIQUETTE MOLDER for reevaluation. Return to the emergency department immediately for severe pain, vaginal bleeding that requires more than 2 pads per hour or for any other symptoms. Thank you very much for choosing us to provide your emergent health care needs. - Post Discharge Activity
[2019-03-17 19:23] VITALS: BP 114/56; PULSE 74
== END 2019-03-17 19:24 | disposition home or self-care (01) ==
LOC: JER 15:21
DX: O26.891 Other specified pregnancy related conditions, first trimester (principal); O20.8 Other hemorrhage in early pregnancy; Z3A.01 Less than 8 weeks gestation of pregnancy; O99.111 Other diseases of the blood and blood-forming organs and certain disorders involving the immune mechanism complicating pregnancy, first trimester; D68.8 Other specified coagulation defects
CPT/HCPCS: 36415; 76817-TC; 84702; 99282-25

== ENCOUNTER 2023-03-26 11:00 | Inpatient (IN) | payer OTHER ==
[2023-03-26] MEDS ORDERED: SODIUM CHLORIDE 500 ML IVPB ONE (11:45)
[2023-03-26] MEDS ORDERED: SODIUM CHLORIDE 1,000 ML IV SCH (11:45)
[2023-03-26 13:44] VITALS: BMI 36.3
[2023-03-26] MEDS ORDERED: morphine SULFATE 4 MG/ML VIAL IVPB ONE (13:47)
[2023-03-26] MEDS ORDERED: morphine SULFATE 4 MG/ML VIAL ONE (13:50)
[2023-03-26 13:55] LABS: EOS % 0.1 % (0-4.5); HEMATOCRIT 34.5 % (32.4-45.2); HEMOGLOBIN 10.8 GM/dL (10.7-15.3); LYMPH % 10.3 % (8-40); MCH 25.6 pg (25.7-33.7); MCHC 31.2 g/dl (32.0-36.0); MEAN CELL VOLUME 81.8 fl (80-96); MEAN PLT VOLUME 9.5 fl (7.5-11.1); MONO % 5.3 % (3.8-10.2); NEUT % 84.3 % (42.8-82.8); PLATELET COUNT 222 10^3/uL (134-434); RBC 4.21 M/mm3 (3.60-5.2); RDW 14.3 % (11.6-15.6); WHITE BLOOD COUNT 11.5 K/mm3 (4.0-10.0)
[2023-03-26 14:00] LABS: INR 0.97 (0.83-1.09); PROTHROMBIN TIME (PATIENT) 11.2 SEC (9.7-13.0)
[2023-03-26 14:03] LABS: ACTIVATED PTT 25.6 SECONDS (25.2-36.5)
[2023-03-26 14:08] LABS: POTASSIUM 4.4 mmol/L (3.5-5.1)
[2023-03-26 14:10] LABS: BLOOD UREA NITROGEN 10.9 mg/dL (7-18); CALCIUM 8.7 mg/dL (8.5-10.1)
[2023-03-26 14:14] LABS: CREATININE 0.7 mg/dL (0.55-1.3)
[2023-03-26] MEDS ORDERED: FENTANYL/BUPIVACAINE/NS/PF - PCEA - 50 ML DISP.SYRIN EP ONE ×2 (15:05→19:17)
[2023-03-26] MEDS ORDERED: NALOXONE HCL 0.4 MG/ML VIAL IVPUSH PRN (15:24)
[2023-03-26] MEDS ORDERED: BUPIVACAINE HCL/PF 0.25% (2.5MG/ML) 10 ML VIAL ONE (15:30)
[2023-03-26] MEDS ORDERED: LIDO 2%/EPI 1:200000 PRESRVFRE (20 ML SDVIAL) ONE (15:30)
[2023-03-26] MEDS: FENTANYL/BUPIVACAINE/NS/PF - PCEA - 50 ML DISP.SYRIN EP SCH ×2 (15:50→19:15)
[2023-03-26] MEDS: DEXTROSE 5%-LACTATED RINGERS 1,000 ML IV SCH (16:30)
[2023-03-26] MEDS ORDERED: LIDOCAINE HCL 1% PRESERVATIVE FREE - 30ML VIAL ONE (19:48)
[2023-03-26] MEDS ORDERED: OXYTOCIN 20 UNITS in 0.9% NS 20 UNIT/1,000 ML INFUS.BAG IV ONE (19:48)
[2023-03-26 20:55] LABS: CORD BASE EXCESS -4.9 mmol/L (0-2); CORD HCO3 19.4 mmHg (20-29); CORD PCO2 34.1 mmHg (30-78); CORD pH 7.372 (7.14-7.44)
[2023-03-26] MEDS ORDERED: METHYLERGONOVINE MALEATE 0.2 MG/1 ML AMP IM PRN (21:17)
[2023-03-26] MEDS ORDERED: ACETAMINOPHEN 325 MG TABLET (FP) PO PRN (21:17)
[2023-03-26] MEDS ORDERED: WITCH HAZEL 50% (TUCKS) 40 PAD/JAR PAD TP PRN (21:17)
[2023-03-26] MEDS ORDERED: OXYTOCIN 20 UNITS in 0.9% NS 20 UNIT/1,000 ML INFUS.BAG IV SCH (21:30)
[2023-03-27] MEDS: IBUPROFEN 600 MG TABLET (FP) PO PRN ×4 (06:15→21:41)
[2023-03-27 08:21] LABS: BASO % 0.2 % (0-2.0); EOS % 0.2 % (0-4.5); HEMATOCRIT 30.8 % (32.4-45.2); LYMPH % 17.3 % (8-40); MCH 26.4 pg (25.7-33.7); MCHC 32.4 g/dl (32.0-36.0); MEAN CELL VOLUME 81.5 fl (80-96); MEAN PLT VOLUME 9.9 fl (7.5-11.1); MONO % 9.2 % (3.8-10.2); NEUT % 73.1 % (42.8-82.8); PLATELET COUNT 215 10^3/uL (134-434); RBC 3.78 M/mm3 (3.60-5.2); RDW 14.2 % (11.6-15.6); WHITE BLOOD COUNT 13.2 K/mm3 (4.0-10.0)
[2023-03-27] MEDS: PRENATAL VITAMINS W/ FOLIC ACID TABLET (FP) PO SCH (09:23)
[2023-03-27] MEDS: FERROUS SO4 325 MG TABLET (FP) PO SCH ×3 (09:23→16:58)
[2023-03-27] MEDS: DEXTROSE 5%-LACTATED RINGERS 1,000 ML IV SCH (15:06)
[2023-03-27] MEDS: FENTANYL/BUPIVACAINE/NS/PF - PCEA - 50 ML DISP.SYRIN EP SCH (19:56)
[2023-03-28] MEDS: IBUPROFEN 600 MG TABLET (FP) PO PRN ×2 (08:08→12:48)
[2023-03-28] MEDS: FERROUS SO4 325 MG TABLET (FP) PO SCH ×2 (08:09→12:48)
[2023-03-28] MEDS: PRENATAL VITAMINS W/ FOLIC ACID TABLET (FP) PO SCH (09:00)
[2023-03-28 11:20] VITALS: BP 124/78; PULSE 81; RESP 16; TEMP 97.5
[2023-03-29 11:01] LABS: POC NITRAZINE POS
== END 2023-03-28 13:33 | disposition home or self-care (01) | DRG 560 ==
LOC: JDEL 11:00 → JLDR 12:30 → J3W 22:24
PROVIDERS: ADMIT Obstetrics & Gynecology Maternal & Fetal Medicine; ATTEND Obstetrics & Gynecology Maternal & Fetal Medicine
PROC: 0HQ9XZZ Repair Perineum Skin, External Approach (ICD-10-PCS; principal; 2023-03-26)
PROC: 10E0XZZ Delivery of Products of Conception, External Approach (ICD-10-PCS; 2023-03-26)
DX: O70.0 First degree perineal laceration during delivery (principal); O99.12 Other diseases of the blood and blood-forming organs and certain disorders involving the immune mechanism complicating childbirth; D68.61 Antiphospholipid syndrome; Z3A.38 38 weeks gestation of pregnancy; Z37.0 Single live birth
CPT/HCPCS: 36415; 36600; 80048; 82803; 83986-QW; 85025; 85461; 85610; 85730; 86780; 86850; 86870; 86900; 86901; 86902; 88307-TC; 96372; J2790